=== PATIENT | male | born 1975 | race Caucasian/White ===

== ENCOUNTER 2024-08-15 16:44 | Emergency (ER) | payer SELFPAY ==
[~2024-08-15] VITALS: Ht 188 cm; Wt 118.0 kg
[2024-08-15 16:50] VITALS: O2SAT 98
[2024-08-15 17:52] LABS: BASOPHILS % 0.8 % (0.0-2.0); EOSINOPHILS % 1.5 % (0.0-5.0); HEMATOCRIT. 40.8 % (42.0-52.0); HEMOGLOBIN. 14.2 g/dL (14.0-18.0); MEAN CORPUSCULAR HEMOGLOBIN 31.9 pg (28.0-32.0); MEAN CORPUSCULAR HGB CONC 34.9 g/dL (31.0-37.0); MEAN CORPUSCULAR VOLUME 91.4 fL (80.0-94.0); MEAN PLATELET VOLUME 7.1 fl (7.4-10.4); MONOCYTES % 6.6 % (2.0-8.0); NEUTROPHILS % 71.1 % (40.0-76.0); PLATELET 244 x1000/uL (130-400); RED BLOOD CELL COUNT 4.46 mill/uL (4.7-6.1); RED CELL DISTRIBUTION WIDTH 12.8 % (11.6-14.6); WHITE BLOOD COUNT 7.2 x1000/uL (4.5-11.0)
[2024-08-15 17:56] LABS: CARBON DIOXIDE 26 mEq/L (21-32); CHLORIDE 106 mEq/L (98-107); POTASSIUM 3.8 mEq/L (3.5-5.1); SODIUM 144 mEq/L (136-145)
[2024-08-15 17:57] LABS: CALCIUM 9.5 mg/dL (8.7-10.4)
[2024-08-15 18:02] LABS: CREATININE 0.8 mg/dL (0.6-1.3); GLUCOSE 87 mg/dL (70-105); UREA NITROGEN BLOOD 16 mg/dL (9-23)
[2024-08-15 18:03] LABS: TROPONIN I HIGH SENSITIVITY 4 ng/L (3.0-53)
[2024-08-15] MEDS: ASPIRIN 81MG TABLET PO ONE (19:56)
[2024-08-15 20:00] LABS: TROPONIN I HIGH SENSITIVITY 6 ng/L (3.0-53)
[2024-08-15 21:37] VITALS: BP 117/78; PULSE 68; RESP 14; O2SAT 100
== END 2024-08-15 22:38 | disposition home or self-care (01) ==
LOC: ER 16:44
DX: R07.89 Other chest pain (principal)
CPT/HCPCS: 36415; 71045; 80048; 84484; 85025; 93005; 99285